=== PATIENT | male | born 1980 | race Caucasian/White ===

== ENCOUNTER 2020-07-14 21:09 | Emergency (ER) | payer OTHER ==
[2020-07-14 22:01] LABS: HEMOGLOBIN 15.8 gm/dl (14.0-17.5); RED BLOOD COUNT 4.93 M/UL (4.20-5.50); WHITE BLOOD COUNT 10.2 K/UL (4.5-11.0)
[2020-07-14 22:18] LABS: BUN/CREATININE RATIO 15 (0-10)
[2020-07-14] MEDS ORDERED: DULCOLAX5 MG PO (23:58)
[2020-07-14] MEDS ORDERED: GLYCERIN1 EACH PR (23:58)
== END 2020-07-15 00:30 | disposition home or self-care (01) ==
LOC: ER1 21:09
PROVIDERS: Physician Assistant
DX: R07.89 Other chest pain (principal); K59.00 Constipation, unspecified; Z88.8 Allergy status to other drugs, medicaments and biological substances
CPT/HCPCS: 71045; 80053; 82550; 82553; 83874; 84439; 84443; 84484; 85025; 93005; 99285